=== PATIENT | female | born 1980 | race Caucasian/White ===

== ENCOUNTER → 2018-05-29 | Outpatient (CLI) | payer OTHER ==
[~2018-05-29] MED LIST: LEVOTHYROXINE 0.15MG PO; MECLIZINE HCL12.5 MG PO; ZOFRAN4 MG PO
== END ==
LOC: M.RAD 13:38
DX: D47.2 Monoclonal gammopathy (principal); M47.816 Spondylosis without myelopathy or radiculopathy, lumbar region; M47.814 Spondylosis without myelopathy or radiculopathy, thoracic region; M41.84 Other forms of scoliosis, thoracic region